=== PATIENT | female | born 1990 | race Caucasian/White ===

== ENCOUNTER 2018-09-28 20:12 | Emergency (ER) | payer SELFPAY ==
[~2018-09-28] VITALS: Ht 157.5 cm; Wt 68.2 kg
[2018-09-28 20:22] VITALS: Ht 157.5 cm; Wt 68.2 kg
[2018-09-28] MEDS ORDERED: VIBRAMYCIN 100100 MG PO (21:21)
[2018-09-28] MEDS ORDERED: VOLTAREN75 MG PO (21:21)
[2018-09-28 22:30] VITALS: BP 120/82
== END 2018-09-28 22:39 | disposition home or self-care (01) ==
LOC: D.ER 20:12
DX: L03.114 Cellulitis of left upper limb (principal); L03.113 Cellulitis of right upper limb; F17.200 Nicotine dependence, unspecified, uncomplicated